=== PATIENT | female | born 1945 | race Two or more races ===

== ENCOUNTER 2022-03-03 10:21 | Day surgery (SDC) | payer MEDICARE, OTHER ==
[~2022-03-03] VITALS: Ht 165.1 cm; Wt 81.6 kg
[2022-03-03] MEDS ORDERED: IOHEXOL-350 100 ML VIAL IV ONE (12:53)
[2022-03-03] MEDS ORDERED: CT SWABBABLE VALVE TRANS SET 1 EA INFUS.SET MC ONE (12:54)
[2022-03-03] MEDS ORDERED: IV NS 0.9% 250 ML IV ONE (12:54)
[2022-03-03] MEDS ORDERED: NITROGLYCERIN 0.4 MG/TAB BOTTLE ONE (12:54)
[2022-03-03] MEDS ORDERED: METOPROLOL TARTRATE INJ 5 MG/5 ML AMPUL ONE ×4 (12:54→14:34)
[2022-03-03] MEDS: METOPROLOL TARTRATE INJ 5 MG/5 ML AMPUL IVP PRN ×7 (14:15→14:45)
[2022-03-03] MEDS ORDERED: NITROGLYCERIN 0.4 MG/TAB BOTTLE SL ONE (14:30)
[2022-03-03 14:45] VITALS: BP 150/79
== END 2022-03-03 14:50 | disposition short-term general hospital (02) ==
LOC: CT 10:21
PROVIDERS: ATTEND Internal Medicine Interventional Cardiology
DX: I25.10 Atherosclerotic heart disease of native coronary artery without angina pectoris (principal); I34.0 Nonrheumatic mitral (valve) insufficiency; I70.0 Atherosclerosis of aorta; R07.9 Chest pain, unspecified
CPT/HCPCS: 75574; J3490 ×3; J7050; Q9967

== ENCOUNTER 2023-11-22 19:49 | Inpatient (IN) | payer MEDICARE, OTHER ==
[~2023-11-22] VITALS: Ht 152.4 cm; Wt 82.1 kg
[2023-11-22 21:26] LABS: BASOPHILS % (AUTO) 0.2 % (0.0-2.0); EOSINOPHILS # (AUTO) 0.2 K/uL (0.0-0.7); EOSINOPHILS % (AUTO) 2.6 % (0.0-6.0); HEMATOCRIT 37 % (33-45); HEMOGLOBIN 12.3 g/dL (11.5-14.8); LYMPHOCYTES # (AUTO) 1.9 K/uL (0.8-4.8); LYMPHOCYTES % (AUTO) 29.3 % (20.0-44.0); MEAN CORPUSCULAR HEMOGLOBIN 29 PG (26.0-33.0); MEAN CORPUSCULAR HGB CONC 33 g/dl (31.0-36.0); MEAN CORPUSCULAR VOLUME 88 fL (82-100); MONOCYTES # (AUTO) 0.9 K/uL (0.1-1.30); MONOCYTES % (AUTO) 14.7 % (2.0-12.0); NEUTROPHILS # (AUTO) 3.4 K/uL (1.8-8.9); NEUTROPHILS % (AUTO) 53.2 % (43.0-81.0); PLATELET COUNT (AUTO) 246 K/uL (150-450); RED BLOOD CELL COUNT(AUTO) 4.22 MIL/uL (4.0-5.2); RED CELL DISTRIBUTION WIDTH 15.9 % (11.5-15.0); WHITE BLOOD COUNT (AUTO) 6.3 K/uL (4.3-11.0)
[2023-11-22 21:52] LABS: CALCIUM, SERUM 9.2 mg/dL (8.5-10.1); CARBON DIOXIDE 29 mmol/L (21-32); CHLORIDE 102 mmol/L (98-107); CREATININE 0.9 mg/dL (0.6-1.3); GLUCOSE 106 mg/dL (74-106); NT-PRO BNP 212 pg/mL (0-125); POTASSIUM 3.1 mmol/L (3.5-5.1); SODIUM SERUM 139 mmol/L (136-145); UREA NITROGEN, BLOOD 18 mg/dL (7-18)
[2023-11-22] MEDS ORDERED: ASPIRIN EC 325 MG TABLET.DR PO ONE (22:37)
[2023-11-22] MEDS: POTASSIUM CHLORIDE 20 MEQ TAB.PRT.SR PO ONE (22:45)
[2023-11-22] MEDS: ASPIRIN EC 325 MG TABLET.DR PO SCH (22:45)
[2023-11-22] MEDS ORDERED: NITROGLYCERIN 0.4 MG/TAB BOTTLE ONE (23:04)
[2023-11-22] MEDS: NITROGLYCERIN 0.4 MG/TAB BOTTLE SL PRN (23:05)
[2023-11-23] VITALS: BP 185/90; TEMP 97.9; O2SAT 96
[2023-11-23] MEDS ORDERED: NITROGLYCERIN 0.4 MG/TAB BOTTLE SL PRN
[2023-11-23] MEDS ORDERED: MAG HYDROX/AL HYDROX/SIMETH 30 ML UDC PO PRN (02:00)
[2023-11-23] MEDS ORDERED: ACETAMINOPHEN 325 MG TABLET PO PRN (02:00)
[2023-11-23] MEDS ORDERED: ZOLPIDEM TARTRATE 5 MG TABLET PO PRN (02:00)
[2023-11-23] MEDS ORDERED: ONDANSETRON HCL/PF 4 MG/2 ML VIAL IVP PRN (02:00)
[2023-11-23] MEDS ORDERED: MAGNESIUM HYDROXIDE 30 ML UDC PO PRN (02:00)
[2023-11-23] MEDS ORDERED: Z GUARD REMEDY 4 OZ OINT TP PRN (02:00)
[2023-11-23 04:00] VITALS: BP 199/93; TEMP 97.9; O2SAT 98
[2023-11-23] MEDS: CLONIDINE HCL 0.1 MG TABLET PO PRN (05:35)
[2023-11-23 06:48] LABS: BASOPHILS % (AUTO) 0.4 % (0.0-2.0); EOSINOPHILS # (AUTO) 0.1 K/uL (0.0-0.7); EOSINOPHILS % (AUTO) 2.5 % (0.0-6.0); HEMATOCRIT 36 % (33-45); HEMOGLOBIN 11.6 g/dL (11.5-14.8); LYMPHOCYTES # (AUTO) 1.8 K/uL (0.8-4.8); LYMPHOCYTES % (AUTO) 30.7 % (20.0-44.0); MEAN CORPUSCULAR HEMOGLOBIN 29 PG (26.0-33.0); MEAN CORPUSCULAR HGB CONC 33 g/dl (31.0-36.0); MEAN CORPUSCULAR VOLUME 88 fL (82-100); MONOCYTES # (AUTO) 0.8 K/uL (0.1-1.30); MONOCYTES % (AUTO) 13.7 % (2.0-12.0); NEUTROPHILS % (AUTO) 52.7 % (43.0-81.0); PLATELET COUNT (AUTO) 221 K/uL (150-450); RED BLOOD CELL COUNT(AUTO) 4.05 MIL/uL (4.0-5.2); WHITE BLOOD COUNT (AUTO) 5.7 K/uL (4.3-11.0)
[2023-11-23 07:25] LABS: CALCIUM, SERUM 8.7 mg/dL (8.5-10.1); CREATININE 0.8 mg/dL (0.6-1.3); MAGNESIUM 1.8 mg/dL (1.8-2.4); POTASSIUM 3.8 mmol/L (3.5-5.1)
[2023-11-23 07:52] LABS: THYROID STIMULATING HORMONE 2.947 uIU/mL (0.358-3.74)
[2023-11-23] MEDS ORDERED: OLME1TAB22 PO (07:53)
[2023-11-23] MEDS ORDERED: CLON0.1T PO (07:53)
[2023-11-23] MEDS ORDERED: OMEP40CA21 PO (07:53)
[2023-11-23] MEDS ORDERED: ISOS60TA72 PO (07:53)
[2023-11-23] MEDS ORDERED: LEFL20TA PO (07:53)
[2023-11-23] MEDS ORDERED: ERGO500040 PO (07:53)
[2023-11-23] MEDS ORDERED: CARV6.25 PO (07:53)
[2023-11-23] MEDS ORDERED: CILO100T PO (07:53)
[2023-11-23] MEDS ORDERED: EZET10TA16 PO (07:53)
[2023-11-23] MEDS ORDERED: ASPI-1169 PO (07:53)
[2023-11-23] MEDS ORDERED: AMLO10TA4 PO (07:53)
[2023-11-23 08:00] VITALS: BP 144/90; TEMP 97.5; O2SAT 98
[2023-11-23] MEDS ORDERED: AMLODIPINE BESYLATE 10 MG TABLET PO PRN (08:30)
[2023-11-23] MEDS ORDERED: hydrALAZINE HCL IV 20 MG VIAL IV PRN (08:30)
[2023-11-23] MEDS ORDERED: PANTOPRAZOLE 40 MG TABLET.DR PO PRN (08:30)
[2023-11-23] MEDS: LEFLUNOMIDE 20 MG TABLET PO SCH (09:00)
[2023-11-23] MEDS: DOCUSATE SODIUM 100 MG CAPSULE PO SCH (09:02)
[2023-11-23] MEDS: PANTOPRAZOLE 40 MG TABLET.DR PO SCH (09:02)
[2023-11-23] MEDS: CILOSTAZOL 100 MG TABLET PO SCH (09:06)
[2023-11-23] MEDS: ATORVASTATIN 10 MG TABLET PO SCH (09:06)
[2023-11-23] MEDS: ASPIRIN 81 MG TAB.CHEW PO SCH (09:08)
[2023-11-23] MEDS: CARVEDILOL 6.25 MG TABLET PO SCH (09:09)
[2023-11-23] MEDS: ISOSORBIDE MONONITRATE (30MG) 30 MG TAB.SR.24H PO SCH (09:09)
[2023-11-23] MEDS: METOPROLOL TARTRATE INJ 5 MG/5 ML AMPUL IVP PRN (11:10)
[2023-11-23] MEDS ORDERED: NITROGLYCERIN 0.4 MG/TAB BOTTLE ONE (11:12)
[2023-11-23] MEDS ORDERED: IOHEXOL-350 100 ML VIAL IV ONE (11:12)
[2023-11-23] MEDS ORDERED: CT SWABBABLE VALVE TRANS SET 1 EA INFUS.SET MC ONE (11:13)
[2023-11-23] MEDS ORDERED: METOPROLOL TARTRATE INJ 5 MG/5 ML AMPUL ONE (11:13)
[2023-11-23] MEDS: NITROGLYCERIN 0.4 MG/TAB BOTTLE SL ONE (11:33)
[2023-11-23] MEDS: LOSARTAN/HCTZ 50-12.5MG/ 1 EA TABLET PO SCH (11:56)
[2023-11-23 12:00] VITALS: BP 144/90; TEMP 97.5; O2SAT 98
[2023-11-23] MEDS: PANTOPRAZOLE 40 MG VIAL IV SCH (12:00)
[2023-11-23 12:57] LABS: ALBUMIN 3.4 g/dL (3.4-5.0); BILIRUBIN,DIRECT 0.2 mg/dL (0.0-0.2); BILIRUBIN,TOTAL 0.4 mg/dL (0.2-1.0); TOTAL PROTEIN, SERUM 7.3 g/dL (6.4-8.2)
[2023-11-23] MEDS ORDERED: PANT40TA49 PO (15:56)
[2023-11-23 16:00] VITALS: BP 139/77; TEMP 98; O2SAT 98
[2023-11-23 16:40] VITALS: BP 139/77
== END 2023-11-23 20:45 | disposition home or self-care (01) | DRG 384 ==
LOC: ER 20:10 → TELE1 20:49
PROVIDERS: ADMIT Nurse Practitioner Family; ATTEND Internal Medicine
DX: K27.9 Peptic ulcer, site unspecified, unspecified as acute or chronic, without hemorrhage or perforation (principal); K21.9 Gastro-esophageal reflux disease without esophagitis; I25.10 Atherosclerotic heart disease of native coronary artery without angina pectoris; I10 Essential (primary) hypertension; Z88.0 Allergy status to penicillin; K76.0 Fatty (change of) liver, not elsewhere classified
CPT/HCPCS: 36415; 71045-TC; 75574; 76700-TC; 80048-TC; 80061-TC; 80076-TC; 82150-TC; 83690-TC; 83735-TC; 83880; 84443-TC; 84484-TC; 85025-TC; 93307-TC; C9113; G0378; J3490; Q9967